=== PATIENT | male | born 1995 | race Caucasian/White ===

== ENCOUNTER 2020-01-01 05:28 | Emergency (ER) | payer BC, OTHER ==
[2020-01-01 06:40] LABS: Basophils % 0.2 % (0-1.3); Hematocrit 42.9 % (39.6-49.0); Lymphocytes % 7.5 % (15.3-44.8); MPV 9.8 fL (7.6-11.3); RBC Red Blood Cell Count 4.77 M/uL (4.33-5.43)
[2020-01-01] MEDS ORDERED: NA CHLORIDE 0.9% 1,000 ML ONE (06:51)
[2020-01-01 06:53] LABS: BUN Blood Urea Nitrogen 18 mg/dL (7-18); Bicarbonate 25 mmol/L (21-32); Glucose Level 241 mg/dL (74-106); Sodium Level 139 mmol/L (136-145)
--- NOTE | 2020-01-01 07:20 | ER ---
Nurse's Notes [facility] Name: Arcelia Camejo Age: 24 yrs Sex: Male : 1995 Arrival Date: 01/01/2020 Time: 05:30 Bed 4 Private MD: Diagnosis: Comminuted fractures neck left humerus with dislocation. Hypoglycemic episode. Grand mal seizure;Type 1 diabetes mellitus Presentation: 12/31 05:49 Chief complaint: Parent and/or Guardian states: He had a seizure about 45 mins ago, hes sg a type 1 diabetic, we were going to go to [facility] [place] but they told us they dont treat type one diabetes there in the ER. Chief complaint: Patient states: I had a seizure and i hurt my left arm during the seizure i think, pt denies head injury or any other trauma at this time, states pain is in the left arm and shoulder area. Coronavirus screen: Proceed with normal triage. Ebola Screen: Patient negative for fever greater than or equal to 101.5 degrees Fahrenheit, and additional compatible Ebola Virus Disease symptoms Patient denies exposure to infectious person. Patient denies travel to an Ebola-affected area in the 21 days before illness onset. No symptoms or risks identified at this time. Initial Sepsis Screen: Does the patient meet any 2 criteria? No. Patient's initial sepsis screen is negative. Does the patient have a suspected source of infection? No. Patient's initial sepsis screen is negative. Risk Assessment: Do you want to hurt yourself or someone else? Patient reports no desire to harm self or others. Onset of symptoms was January 01, 2020. Care prior to arrival: None. 05:49 Method Of Arrival: Ambulatory sg 05:49 Note pt is a very poor historian and requesting her to be at bedside for more sg information. 05:49 Acuity: CECILE 3 sg Historical: - Allergies: 05:51 No Known Allergies; sg - Home Meds: 06:11 potassium gluconate 500 mg (83 mg) oral tab 3 tab daily [Active]; sg - PMHx: 05:51 Diabetes - IDDM; sg - Immunization history:: Adult Immunizations up to date. - Social history:: Smoking status: Patient denies any tobacco usage or history of. Screenin:17 Abuse screen: Denies threats or abuse. Nutritional screening: No deficits noted. em Tuberculosis screening: No symptoms or risk factors identified. Fall Risk None identified. Assessment: 06:00 General: Appears in no apparent distress. uncomfortable, Behavior is calm, cooperative, jb4 appropriate for age. Pain: Complains of pain in right arm and left arm Pain does not radiate. Pain currently is 10 out of 10 on a pain scale. Neuro: Level of Consciousness is awake, alert, obeys commands, Oriented to person, place, time, situation. Cardiovascular: Patient's skin is warm and dry. Respiratory: Airway is patent Respiratory effort is even, unlabored, Respiratory pattern is regular, symmetrical. GI: No signs and/or symptoms were reported involving the gastrointestinal system. : No signs and/or symptoms were reported regarding the genitourinary system. EENT: No signs and/or symptoms were reported regarding the EENT system. Derm: Skin is intact, Skin is pink, warm \T\ dry. Musculoskeletal: Circulation, motion, and sensation intact. Range of motion: limited in left shoulder and right shoulder. 06:55 Reassessment: Patient appears in no apparent distress at this time. Patient and/or jb4 family updated on plan of care and expected duration. Pain level reassessed. Patient is alert, oriented x 3, equal unlabored respirations, skin warm/dry/pink. 07:50 Reassessment: reports pain in the left arm and back, rates pain 10/10, Dr. Chapa em notified. 08:10 Reassessment: report given to BARTOLOME Briseno at [facility], pt reports pain in the em right arm/shoulder area, Dr. Chapa notified. 08:37 Reassessment: x-ray at bedside. em 09:36 Reassessment: Patient appears in no apparent distress at this time. Patient and/or em family updated on plan of care and expected duration. Pain level reassessed. report pain is coming back, rates pain 10/10, Dr. Chapa notified. 10:01 Reassessment: report given to EMS. em Vital Signs: 05:50 BP 132 / 88; Pulse 89; Resp 18; Temp 97.9; Pulse Ox 99% on R/A; Weight 97.98 kg (R); sg Height 6 ft. 0 in. (182.88 cm) (R); Pain 10/10; 08:00 BP 126 / 71; Pulse 73; Resp 16; Pulse Ox 97% on R/A; Pain 7/10; em 05:50 Body Mass Index 29.29 (97.98 kg, 182.88 cm) ED Course: 05:30 Patient arrived in ED. ag3 05:41 Gordo Lopez MD is Attending Physician. pkl 05:51 Triage completed. 05:51 Arm band placed on. 06:10 Jaydon Krueger, RN is Primary Nurse. jb4 06:25 Shoulder Left (2 View) XRAY In Process Unspecified. EDMS 06:26 CT Head Brain wo Cont In Process Unspecified. EDMS 06:30 Initial lab(s) drawn, by wa, sent to lab. Inserted saline lock: 18 gauge in right jb4 antecubital area, using aseptic technique. Blood collected. 07:17 Patient has correct armband on for positive identification. Placed in gown. Bed in low em position. Call light in reach. Adult w/ patient. 07:42 Attending Physician role handed off by Gordo Lopez MD killian 07:42 Shai Chapa MD is Attending Physician. killian 08:00 XRAY Chest Pa And Lat (2 Views) In Process Unspecified. EDMS 08:00 Shoulder immobilizer applied on left shoulder. em 08:49 Shoulder Right (2 View) XRAY In Process Unspecified. EDMS 10:01 No provider procedures requiring assistance completed. Patient transferred, IV remains em in place. Administered Medications: 07:00 Drug: NS 0.9% 1000 ml Route: IV; Rate: 125 ml/hr; Site: right antecubital; jb4 10:14 Follow up: IV Status: Order to discontinue infusion em 07:52 Drug: fentaNYL (PF) 25 mcg Route: IVP; Site: right antecubital; em 08:30 Follow up: Response: No adverse reaction; Marked relief of symptoms; Pain is decreased; em RASS: Alert and Calm (0) 07:52 Drug: Zofran (Ondansetron) 4 mg Route: IVP; Site: right antecubital; em 09:44 Follow up: Response: No adverse reaction em 08:02 Drug: fentaNYL (PF) 25 mcg Route: IVP; Site: right antecubital; em 08:30 Follow up: Response: No adverse reaction; Marked relief of symptoms; Pain is decreased em 08:30 Follow up: Response: No adverse reaction; Marked relief of symptoms; Pain is decreased; em RASS: Alert and Calm (0) 09:45 Drug: fentaNYL (PF) 25 mcg Route: IVP; Site: right antecubital; hb 10:02 Follow up: Response: No adverse reaction; Marked relief of symptoms; Pain is decreased; em RASS: Alert and Calm (0) Point of Care Testing: Blood Glucose: 08:00 Blood Glucose: 307 mg/dL; em Ranges: Outcome: 07:19 ER care complete, transfer ordered by . lizzie 10:14 Transferred by ground EMS to [facility] [place], Transfer form completed. em X-rays sent w/ patient. 10:14 Condition: good 10:14 Instructed on the need for transfer, Demonstrated understanding of instructions. 10:16 Patient left the ED. em Signatures: Dispatcher [employer] Jeremy Yuan RN RN sg Shai Chapa MD MD cha Lam, Pin, MD MD pkl Munoz, Edgar, RN RN Gayle Godfrey RN RN Jaydon Krueger RN RN jb4 Gomez, Alice ag3 Corrections: (The following items were deleted from the chart) 06:59 05:49 Acuity: CECILE 4 [facility]
--- NOTE | 2020-01-01 07:20 | EDPHYS ---
Physician Documentation [facility] Name: Arcelia Camejo Age: 24 yrs Sex: Male : 1995 Arrival Date: 01/01/2020 Time: 05:30 Bed 4 Private MD: DIMITRI Physician Shai Chapa HPI: 12/31 06:07 This 24 yrs old Male presents to ER via Ambulatory with complaints of Arm pkl Pain, Low Blood Sugar, Probable Seizure. 06:07 The patient presents after having a single isolated seizure, that lasted 2 minute(s). pkl Character of seizure(s): Loss of consciousness: the patient experienced loss of consciousness, Motor activity: generalized. Seizure onset: just prior to arrival. Context: the seizure(s) was witnessed, by family, mother. Mother said patient has Type 1 diabetes. Has episodes of hypoglycemia. Mother knew he was having symptoms of hypoglycemia and started giving patient honey when he started having seizures. Historical: - Allergies: 05:51 No Known Allergies; sg - Home Meds: 06:11 potassium gluconate 500 mg (83 mg) oral tab 3 tab daily [Active]; sg - PMHx: 05:51 Diabetes - IDDM; sg - Immunization history:: Adult Immunizations up to date. - Social history:: Smoking status: Patient denies any tobacco usage or history of. ROS: 06:07 Eyes: Negative for injury, pain, redness, and discharge, ENT: Negative for injury, pkl pain, and discharge, Neck: Negative for injury, pain, and swelling, Cardiovascular: Negative for chest pain, palpitations, and edema, Respiratory: Negative for shortness of breath, cough, wheezing, and pleuritic chest pain, Abdomen/GI: Negative for abdominal pain, nausea, vomiting, diarrhea, and constipation, Back: Negative for injury and pain, : Negative for injury, bleeding, discharge, and swelling. 06:07 MS/extremity: Positive for pain, of the left shoulder. 06:07 Skin: Negative for rash. 06:07 Neuro: Positive for loss of consciousness, seizure activity. Exam: 06:17 Head/Face: Normocephalic, atraumatic. Eyes: Pupils equal round and reactive to light, pkl extra-ocular motions intact. Lids and lashes normal. Conjunctiva and sclera are non-icteric and not injected. Cornea within normal limits. Periorbital areas with no swelling, redness, or edema. ENT: Nares patent. No nasal discharge, no septal abnormalities noted. Tympanic membranes are normal and external auditory canals are clear. Oropharynx with no redness, swelling, or masses, exudates, or evidence of obstruction, uvula midline. Mucous membranes moist. Neck: Trachea midline, no thyromegaly or masses palpated, and no cervical lymphadenopathy. Supple, full range of motion without nuchal rigidity, or vertebral point tenderness. No Meningismus. Chest/axilla: Normal chest wall appearance and motion. Nontender with no deformity. No lesions are appreciated. Cardiovascular: Regular rate and rhythm with a normal S1 and S2. No gallops, murmurs, or rubs. Normal PMI, no JVD. No pulse deficits. Respiratory: Lungs have equal breath sounds bilaterally, clear to auscultation and percussion. No rales, rhonchi or wheezes noted. No increased work of breathing, no retractions or nasal flaring. Abdomen/GI: Soft, non-tender, with normal bowel sounds. No distension or tympany. No guarding or rebound. No evidence of tenderness throughout. Back: No spinal tenderness. No costovertebral tenderness. Full range of motion. Skin: Warm, dry with normal turgor. Normal color with no rashes, no lesions, and no evidence of cellulitis. 06:17 Musculoskeletal/extremity: Extremities: grossly normal except: noted in the left shoulder: pain, tenderness. 06:17 Neuro: Orientation: is normal, Mentation: is normal, Cranial nerves: grossly normal, Motor: is normal. Vital Signs: 05:50 BP 132 / 88; Pulse 89; Resp 18; Temp 97.9; Pulse Ox 99% on R/A; Weight 97.98 kg (R); sg Height 6 ft. 0 in. (182.88 cm) (R); Pain 10/10; 08:00 BP 126 / 71; Pulse 73; Resp 16; Pulse Ox 97% on R/A; Pain 7/10; em 05:50 Body Mass Index 29.29 (97.98 kg, 182.88 cm) MDM: 05:41 Patient medically screened. pkl 06:37 Data reviewed: vital signs, nurses notes. ED course: Talked to Dr. Aranda, transfer pkl to [facility]. 07:12 ED course: Talked to Dr. Roberto ( Orthopedist ) and Dr. Motley ( Hospitalist ). Transfer pk to [facility]. 12/31 05:54 Order name: CBC with Diff; Complete Time: 07:42 pkl 12/31 05:54 Order name: Chem 7; Complete Time: 07:02 pkl 12/31 05:54 Order name: UDS; Complete Time: 19:03 pkl 12/31 06:04 Order name: Glucose, Ancillary Testing; Complete Time: 06:06 EDMS 12/31 06:42 Order name: Glucose, Ancillary Testing; Complete Time: 07:02 EDMS 12/31 07:34 Order name: CBC Smear Scan; Complete Time: 07:42 EDMS 12/31 05:47 Order name: Shoulder Left (2 View) XRAY; Complete Time: 19:03 pkl 12/31 05:51 Order name: CT Head Brain wo Cont; Complete Time: 19:03 pkl 12/31 07:02 Order name: XRAY Chest Pa And Lat (2 Views); Complete Time: 19:03 pkl 12/31 07:57 Order name: Glucose, Ancillary Testing; Complete Time: 19:03 EDMS 12/31 08:16 Order name: Shoulder Right (2 View) XRAY; Complete Time: 19:03 killian 12/31 05:47 Order name: Saline Lock; Complete Time: 06:42 pkl 12/31 05:47 Order name: Accucheck; Complete Time: 06:10 pkl 12/31 07:06 Order name: Shoulder Immobilizer; Complete Time: 08:21 pkl 12/31 07:07 Order name: Accucheck Blood Glucose: q hourly; Complete Time: 07:46 pkl 12/31 07:43 Order name: Ice pack; Complete Time: 07:46 killian Administered Medications: 07:00 Drug: NS 0.9% 1000 ml Route: IV; Rate: 125 ml/hr; Site: right antecubital; jb4 10:14 Follow up: IV Status: Order to discontinue infusion em 07:52 Drug: fentaNYL (PF) 25 mcg Route: IVP; Site: right antecubital; em 08:30 Follow up: Response: No adverse reaction; Marked relief of symptoms; Pain is decreased; em RASS: Alert and Calm (0) 07:52 Drug: Zofran (Ondansetron) 4 mg Route: IVP; Site: right antecubital; em 09:44 Follow up: Response: No adverse reaction em 08:02 Drug: fentaNYL (PF) 25 mcg Route: IVP; Site: right antecubital; em 08:30 Follow up: Response: No adverse reaction; Marked relief of symptoms; Pain is decreased em 08:30 Follow up: Response: No adverse reaction; Marked relief of symptoms; Pain is decreased; em RASS: Alert and Calm (0) 09:45 Drug: fentaNYL (PF) 25 mcg Route: IVP; Site: right antecubital; hb 10:02 Follow up: Response: No adverse reaction; Marked relief of symptoms; Pain is decreased; em RASS: Alert and Calm (0) Point of Care Testing: Blood Glucose: 08:00 Blood Glucose: 307 mg/dL; em Ranges: Critical Glucose Levels:Adult <50 mg/dl or >400 mg/dl <40 mg/dl or >180 mg/dl Disposition: 01/01/20 07:19 Transfer ordered to [facility]. Diagnosis are Comminuted fractures neck left humerus with dislocation. Hypoglycemic episode. Grand mal seizure, Type 1 diabetes mellitus. - Reason for transfer: Higher level of care. - Accepting physician is Dr. Motley. - Condition is Stable. - Problem is new. - Symptoms are unchanged. Signatures: Dispatcher [employer] EDJeremy Johnston RN RN sg Anderson, Corey, MD MD cha Lam, Pin, MD MD pkl Munoz, Edgar, RN RN Gayle Godfrey RN RN hb Bryson, James, RN RN jb4 Corrections: (The following items were deleted from the chart) 07:44 07:19 01/01/2020 07:19 Transfer ordered to [facility]. killian Diagnosis is Comminuted fractures neck left humerus with dislocation. Hypoglycemic episode. Grand mal seizure. Reason for transfer: Higher level of care. Accepting physician is Dr. Motley. Condition is Stable. Problem is new. Symptoms are unchanged. pkl 10:16 07:44 01/01/2020 07:19 Transfer ordered to [facility]. em Diagnosis is Comminuted fractures neck left humerus with dislocation. Hypoglycemic episode. Grand mal seizure; Type 1 diabetes mellitus. Reason for transfer: Higher level of care. Accepting physician is Dr. Motley. Condition is Stable. Problem is new. Symptoms are unchanged. killian
[2020-01-01 07:34] LABS: Blood Morphology Comment NOT SEEN (NOT SEEN); Platelet Estimate ADEQ; Urine White Blood Cell Casts OK
[2020-01-01] MEDS ORDERED: ONDANSETRON 4 MG/2 ML VIAL ONE (07:54)
[2020-01-01] MEDS ORDERED: FENTANYL CITR 100 MCG/2 ML ONE ×2 (07:54→09:29)
[2020-01-01 07:58] LABS: Barbiturates NEGATIVE (NEGATIVE); Benzodiazepines NEGATIVE (NEGATIVE); Cocaine NEGATIVE (NEGATIVE); METHAMPHETAM NEGATIVE (NEGATIVE); Methadone NEGATIVE (NEGATIVE); Opiates NEGATIVE (NEGATIVE); Phencyclidine NEGATIVE (NEGATIVE); THC Cannibis POSITIVE (NEGATIVE)
--- NOTE | 2020-01-01 08:26 | RAD REPORT ---
EXAM DESCRIPTION: RAD - Chest Pa And Lat (2 Views) - 01/01/2020 7:59 am CLINICAL HISTORY: CHEST PAIN COMPARISON: None TECHNIQUE: Frontal and lateral views of the chest were obtained. FINDINGS: The lungs are clear. Heart size is normal and central vasculature is within normal limit s. No pleural effusion or pneumothorax seen. Left shoulder findings are separately detailed. No oth er acute bone finding. No aortic abnormality. IMPRESSION: No acute cardiopulmonary process.
--- NOTE | 2020-01-01 09:41 | RAD REPORT ---
EXAM DESCRIPTION: RAD - Shoulder Left 2 View - 01/01/2020 6:24 am CLINICAL HISTORY: PAIN COMPARISON: No comparisons TECHNIQUE: Internal and external rotation views of the left shoulder were obtained. FINDINGS: Exam labeled as internal and external rotation. No change in positioning between the two v iews. No clavicle fracture. AC joint is normal. No scapula fracture is seen. Comminuted proximal humerus fracture is present. There is partial dislocation or laxity joint space. No pathologic bone changes. No significant angulation deformity seen. IMPRESSION: Comminuted fracture of the proximal left humeral head and shaft. Joint laxity or partial dislocation of the humeral head.
--- NOTE | 2020-01-01 09:41 | RAD REPORT ---
EXAM DESCRIPTION: Shoulder Right 2 View - 01/01/2020 8:49 am CLINICAL HISTORY: PAIN COMPARISON: No comparisons TECHNIQUE: Internal and external rotation views of the right shoulder were obtained. FINDINGS: There is no fracture or dislocation. AC joint is normal in appearance. No acute or suspic ious findings. IMPRESSION: Negative two-view right shoulder examination.
[2020-01-01 10:34] VITALS: TEMP 97.9
[2020-01-01 10:35] VITALS: BP 126/71; O2SAT 97
--- NOTE | 2020-01-01 13:37 | RAD REPORT ---
EXAM DESCRIPTION: CT - Head Brain Wo Cont - 01/01/2020 6:53 am CLINICAL HISTORY: The patient is 24 years old and is Male; SEIZURE TECHNIQUE: Axial computed tomography images of the head/brain without intravenous contrast. Sagit korey and coronal reformatted images were created and reviewed. This CT exam was performed using one or more of the following dose reduction techniques: automated exposure control, adjustment of the m A and/or kV according to patient size, and/or use of iterative reconstruction technique. COMPARISON: No relevant prior studies available. FINDINGS: Brain: Unremarkable. No hemorrhage. No significant white matter disease. No edema. Ventricles: Unremarkable. No ventriculomegaly. Bones/joints: Unremarkable. No acute fracture. Soft tissues: Unremarkable. Sinuses: Unremarkable as visualized. No acute sinusitis. Mastoid air cells: No significant mastoid fluid. IMPRESSION: No intracranial hemorrhage. No acute skull fracture. Electronically signed by: La Lomeli MD 01/01/2020 6:44 AM CDT Due to temporary technical issues with the PACS/Fluency reporting system, reports are being signed by the in house radiologist as a courtesy to ensure prompt reporting. The interpreting radiologist is f ully responsible for the content of the report.
== END 2020-01-01 10:16 | disposition short-term general hospital (02) ==
LOC: ER 05:28
DX: E10.649 Type 1 diabetes mellitus with hypoglycemia without coma (principal); S42.212A Unspecified displaced fracture of surgical neck of left humerus, initial encounter for closed fracture
CPT/HCPCS: 85025; 80048; 36415; 82947 ×3; 80307 ×8; 70450; 71046; 73030 ×2; J3010 ×2; J7030; J2405; 96361; 96374; 96375; 99285